=== PATIENT | male | born 1990 | race Caucasian/White ===

== ENCOUNTER 2020-11-14 08:28 | Emergency (ER) | payer OTHER ==
[~2020-11-14 08:28] MED LIST: AMOXICILLIN500 M2 PO; BACTRIM DS TAB1 EACH PO; BIAXIN500 MG PO; BROMFED DM COU473 ML PO; FLOMAX 0.4 MG0.4 MG PO; MEDROL 4MG DOSEP4 MG PO; NORCO 5-325 TA1 EACH PO; PEPCID AC20 MG PO; PHENERGAN25 M1 PO
[2020-11-14] MEDS ORDERED: ANUCORT-HC25 MG PR (09:04)
[2020-11-14] MEDS ORDERED: NAPROXEN500 MG PO (09:04)
== END 2020-11-14 09:25 | disposition home or self-care (01) ==
LOC: FER 08:28
DX: K64.5 Perianal venous thrombosis (principal)
CPT/HCPCS: 99283

== ENCOUNTER 2021-03-15 14:19 | Emergency (ER) | payer OTHER ==
[~2021-03-15 14:19] MED LIST changes: +ANUCORT-HC25 MG PR; +NAPROXEN500 MG PO
[2021-03-15 16:10] LABS: BASOPHIL 0.3 % (0-2); EOSINOPHIL 0.6 % (0-5); HCT 45.2 % (42.0-52.0); HGB 15.2 g/dl (13.2-18.0); LYMPHOCYTE 26.9 % (15-48); MCH 29.4 pg (25.0-31.0); MCHC 33.6 g/dL (32.0-36.0); MCV 87.4 fL (78.0-100.0); MONOCYTE 10.4 % (0-12); MPV 9.7 fL (6.0-9.5); NEUTROPHIL 61.5 % (41-80); NRBC 0; PLT 180 K/uL (150-400); RBC 5.17 M/uL (4.70-6.00); RDW 12.3 % (11.5-14.0); WBC 3.4 K/uL (4.0-10.5)
[2021-03-15 16:21] LABS: CREATININE 0.81 mg/dL (0.67-1.17); POTASSIUM 3.8 mmol/L (3.5-5.1)
[2021-03-15] MEDS ORDERED: ZOFRAN4 M1 PO (18:29)
[2021-03-15] MEDS ORDERED: VENTOLIN HFA IN18 GM INH (18:29)
[2021-03-15 18:31] LABS: BILIRUBIN NEGATIVE (NEGATIVE); BLOOD TRACE-INTACT Ery/uL (NEGATIVE); CLARITY CLEAR (CLEAR); COLOR YELLOW (YELLOW); GLUCOSE (U) NORMAL (NORMAL); LEUKOCYTES NEGATIVE Leu/uL (NEGATIVE); NITRITE NEGATIVE (NEGATIVE); PROTEIN TRACE (LOW) mg/dL (NEGATIVE); SPECIFIC GRAVITY >=1.030 (1.001-1.030); UROBILINOGEN 0.2 mg/dL (0.2-1.0)
[2021-03-15 18:37] LABS: BACTERIA TRACE; MUCOUS MODERATE; SQUAMOUS EPITHELIAL CELLS RARE; URINARY WBC RARE
== END 2021-03-15 19:02 | disposition home or self-care (01) ==
LOC: FER 14:19
PROVIDERS: Nurse Practitioner Family
DX: U07.1 COVID-19 (principal); J12.82 Pneumonia due to coronavirus disease 2019
CPT/HCPCS: 36415; 71045; 80048; 81001; 85025; 85379; J1100; J2405; J7120